=== PATIENT | male | born 1975 | race Hispanic/Latino ===

== ENCOUNTER 2018-07-29 14:55 | Emergency (ER) | payer BC, SELFPAY ==
[2018-07-29] MEDS ORDERED: Ondansetron HCl/PF 4 MG/2 ML Vial ONE (15:02)
--- NOTE | 2018-07-29 15:19 | RAD ---
LEFT SHOULDER 2 VIEWS: HISTORY: Injury, left shoulder pain. FINDINGS/IMPRESSION: There is an anterior subcoracoid dislocation of the glenohumeral joint. There is a questionable frac ture involving the greater tuberosity. POS: C
[2018-07-29] MEDS ORDERED: Bacitracin Zinc 1 Packet ONE (15:38)
--- NOTE | 2018-07-29 15:44 | RAD ---
LEFT SHOULDER 2 VIEWS: HISTORY: Status post reduction. COMPARISON: 07/19/18. FINDINGS: Previous reduction of anterior-inferior dislocation. Irregularity suggests possible traumatic change for the humeral head. IMPRESSION: Interval reduction. Possible humeral head fracture, nondisplaced. POS: DICK
== END 2018-07-29 16:00 | disposition home or self-care (01) ==
LOC: ERS 14:55
DX: S43.015A Anterior dislocation of left humerus, initial encounter (principal); F17.210 Nicotine dependence, cigarettes, uncomplicated; W20.8XXA Other cause of strike by thrown, projected or falling object, initial encounter
CPT/HCPCS: 23650; 96361; 96374; 96375; 99152; J2270; J2405

== ENCOUNTER 2025-06-28 10:53 | Outpatient (CLI) | payer BC | END 2025-06-28 10:54 | disposition home or self-care (01) | LOC: BICRAD 10:53 | PROVIDERS: ATTEND Nurse Practitioner Family | DX: M25.562 Pain in left knee (principal) ==